=== PATIENT | female | born 1955 | race Caucasian/White ===

== ENCOUNTER 2017-07-20 15:11 | Emergency (ER) | payer MEDICARE, BC ==
[~2017-07-20] VITALS: Ht 162.6 cm; Wt 149.1 kg
[2017-07-20 15:17] VITALS: BP 136/64; PULSE 97; RESP 16; TEMP 99.4; O2SAT 95
[2017-07-20 15:32] LABS: BILIRUBIN, URINE NEG (NEG); BLOOD, URINE LARGE (NEG); GLUCOSE,URINE 100 mg/dL (NEG); KETONE, URINE NEG (NEG); NITRITE,URINE NEG (NEG); URINE LEUKOCYTE ESTERASE LARGE (NEG)
[2017-07-20 15:45] LABS: SQUAMOUS EPITHELIAL CELL URINE 0-5 /hpf (0-5); URINE COLOR YELLOW (YELLW/STRAW); WBC, URINE 100-200 /hpf (0-5); WHITE BLOOD CELL CLUMPS MOD
[2017-07-20 15:46] LABS: BACTERIA, URINE FEW /hpf
[2017-07-20] MEDS ORDERED: RECLAST (17:45)
[2017-07-20] MEDS ORDERED: FURO1TAB60 PO (17:45)
[2017-07-20] MEDS ORDERED: TAMS0.4C4 (17:45)
[2017-07-20] MEDS ORDERED: VICT18IN SQ (17:45)
[2017-07-20] MEDS ORDERED: CARV12.52 PO (17:45)
[2017-07-20] MEDS ORDERED: VITAMIN B12 (17:45)
[2017-07-20] MEDS ORDERED: TRAM50TA PO (17:45)
[2017-07-20] MEDS ORDERED: METF500T PO (17:45)
[2017-07-20] MEDS ORDERED: CYMB60CA PO (17:45)
[2017-07-20] MEDS ORDERED: DICY10 PO (17:45)
[2017-07-20] MEDS ORDERED: VIT D (17:45)
[2017-07-20] MEDS ORDERED: GABA600T PO (17:45)
[2017-07-20] MEDS ORDERED: CHOLCRY (17:45)
[2017-07-20] MEDS ORDERED: GLIP10TA6 PO (17:45)
[2017-07-20] MEDS ORDERED: BIOTCAP PO (17:45)
[2017-07-20] MEDS ORDERED: SODIUM CHLORIDE 0.9% FLUSH 10 ML FLUSH IV FLUSH PRN (18:30)
[2017-07-20] MEDS ORDERED: cefTRIAXone INJ 1,000 MG in SODIUM CHLORIDE 0.9% INJ 100 ML IV ONE (18:30)
[2017-07-20 19:00] VITALS: O2SAT 94
--- NOTE | 2017-07-20 19:12 | RADRPT ---
EXAM DATE/TIME: 07/20/2017 18:38 [place] COMPARISON: No previous studies available for comparison. INDICATIONS : Urinary urgency, frequency, and burning. ORAL CONTRAST: No oral contrast ingested. RADIATION DOSE: 27.78 CTDIvol (mGy) ; High dose protocol; Patient body habitus MEDICAL HISTORY : Crohn's disease. SURGICAL HISTORY : Umbilical hernia repair. Multiple abdominal surgeries, patient unsure. ENCOUNTER: Initial ACUITY: 4 - 6 days PAIN SCALE: 5/10 LOCATION: abdomen TECHNIQUE: Volumetric scanning of the abdomen and pelvis was performed. Using automated exposure control and ad justment of the mA and/or kV according to patient size, radiation dose was kept as low as reasonably achievable to obtain optimal diagnostic quality images. DICOM format image data is available electro nically for review and comparison. The lack of IV contrast limits the diagnosis for certain organ pat hology. FINDINGS: LIVER: Homogeneous density without lesion. There is no dilation of the biliary tree. There appears to be so me tiny calcified gallstones. SPLEEN: Normal size without lesion. PANCREAS: Within normal limits. KIDNEYS: Multiple calcified bilateral renal stones are demonstrated. There is some mild hydronephrosis of the left collecting system. There is a 1.6 cm stone in the lower pole the right kidney. There is a 1 cm s tone in the mid right renal pelvis. There is a 1.2 cm stone in the mid left renal pelvis. There is a 1.1 cm stone in the proximal right ureter. A few tiny stone fragments are seen in the mid to distal r ight ureter. ADRENAL GLANDS: Within normal limits. VASCULAR: There is no aortic aneurysm. BOWEL/MESENTERY: The stomach, small bowel, and colon demonstrate no acute abnormality. There is no free intraperitone al air or fluid. No inflammatory changes. ABDOMINAL WALL: Within normal limits. RETROPERITONEUM: There is no lymphadenopathy. BLADDER: No wall thickening or mass. No definite bladder stones. The urinary bladder is decompressed. REPRODUCTIVE: Within normal limits. INGUINAL: There is no lymphadenopathy or hernia. MUSCULOSKELETAL: Within normal limits for patient age. Diffuse degenerative changes. CONCLUSION: 1. Multiple bilateral calcified renal stones. There is hydronephrosis of the right collecting system. 2. There is several stones seen in the mid and distal ureter right ureter. Lino Sandoval MD on July 20, 2017 at 19:03 Board Certified Radiologist. This report was verified electronically.
[2017-07-20 19:17] LABS: AUTOMATED NEUTROPHIL # 5.3 TH/MM3 (1.8-7.7); BASOPHIL # 0.2 TH/MM3 (0-0.2); EOSINOPHIL % 0.1 % (0.0-4.0); HEMATOCRIT 42.7 % (35.0-46.0); HEMOGLOBIN 14.2 GM/DL (11.6-15.3); LYMPH % 11.1 % (9.0-44.0); LYMPHOCYTE # 0.8 TH/MM3 (1.0-4.8); MEAN CELL VOLUME 91.2 FL (80.0-100.0); MEAN CORPUSCULAR HEMOGLOBIN 30.4 PG (27.0-34.0); MEAN CORPUSCULAR HGB CONC 33.3 % (32.0-36.0); MEAN PLATELET VOLUME 8.1 FL (7.0-11.0); MONO % 10.4 % (0.0-8.0); MONOCYTE # 0.7 TH/MM3 (0-0.9); NEUT % 75.4 % (16.0-70.0); PLATELET COUNT 104 TH/MM3 (150-450); RED BLOOD COUNT 4.68 MIL/MM3 (4.00-5.30); RED CELL DISTRIBUTION WIDTH 13.6 % (11.6-17.2)
[2017-07-20 19:29] LABS: BICARBONATE 26.5 MEQ/L (21.0-32.0); CALCIUM 8.7 MG/DL (8.5-10.1)
[2017-07-20 19:32] LABS: CREATININE 1.2 MG/DL (0.50-1.00)
[2017-07-20] MEDS ORDERED: MACR100C2 PO (19:47)
[2017-07-20] MEDS ORDERED: TAMS5CAP PO (19:47)
--- NOTE | 2017-07-20 19:52 | PD ---
HPI Chief Complaint: Complaint Time Seen by Provider: 18:10 Travel History International Travel<30 days: No Contact w/Intl Traveler<30days: No Traveled to known affect area: No History of Present Illness HPI Patient comes to the emergency department complaining UTI symptoms 5 days. Patient reports dysuria, urinary frequency, and low back pain. Denies any fevers, chest pain, shortness of breath, nausea, vomiting, loss change of bowel , or trauma. Patient reports history of kidney stone was too big to be retrieved states she has passed kidney stones in the past but this does not feel quite the same. Patient states she gets UTIs approximately twice a year. Patient states that the back pain began 2 days ago she started taking a prescription of doxycycline yesterday the back pain has since improved. Patient states she has been taking Tylenol for the pain, but can only take 1 a day secondary to her history of Conti. Patient states that she does not like to take ibuprofen secondary to her Crohn's. PFSH Past Medical History Narrative Medical Crohn's, CONTI Congestive Heart Failure: Yes Diabetes: Yes Diminished Hearing: No Tetanus Vaccination: Unknown ?: Not Social History Alcohol Use: No Tobacco Use: No Substance Use: No Allergies-Medications (Allergen,Severity, Reaction): Coded Allergies: No Known Allergies (Unverified , 07/20/17) Reported Meds & Prescriptions Reported Meds & Active Scripts Active Flomax (Tamsulosin HCl) 0.4 Mg Cap 0.4 Mg PO HS 7 Days Macrobid (Nitrofurantoin Monoh/Nitrofur Macro) 100 Mg Cap 100 Mg PO BID 10 Days Reported [Vit D] [Vitamin B12] Tramadol (Tramadol HCl) 50 Mg Tab 50 Mg PO Q6H PRN [Reclast] Metformin (Metformin HCl) 500 Mg Tab 750 Mg PO BIDPC Victoza Inj (Liraglutide Inj) 18 Mg/3 Ml Pen 1.8 Mg SQ DAILY Lasix (Furosemide) 40 Mg Tab 40 Mg PO BID Glipizide 10 Mg Tab 10 Mg PO DAILY Take 30 minutes before a meal Gabapentin 600 Mg Tab 1,200 Mg PO TID Cymbalta DR (Duloxetine HCl) 60 Mg Capdr 60 Mg PO DAILY [Cholecalciferol] Carvedilol 12.5 Mg Tab 12.5 Mg PO BID Biotin 5 Mg Cap 1 Mg PO DAILY Bentyl (Dicyclomine HCl) 10 Mg Cap 10 Mg PO BID Review of Systems Except as stated in HPI: all other systems reviewed are Neg Physical Exam Narrative GENERAL: Well-developed, overly nourished, in no acute distress, and non-ill appearing. SKIN: Focused skin assessment warm and dry. HEAD: Atraumatic. Normocephalic. EYES: Pupils equal and round. EOMI. No scleral icterus. No injection or drainage. ENT: No nasal bleeding or discharge. Mucous membranes pink and moist. NECK: Trachea midline. Supple. No nuclear rigidity. RESPIRATORY: No accessory muscle use. No respiratory distress. GASTROINTESTINAL: Abdomen soft, non-tender, nondistended, and no guarding. Hepatic and splenic margins not palpable. Normal bowel sounds x4. No pulsatile mass. No CVA tenderness. MUSCULOSKELETAL: No obvious deformities. No clubbing. No cyanosis. No edema. Full range of motion. NEUROLOGICAL: Awake and alert. No obvious cranial nerve deficits. Motor grossly within normal limits. Normal speech. PSYCHIATRIC: Appropriate mood and affect; insight and judgment normal. Data Data Last Documented VS Vital Signs Date Time Temp Pulse Resp B/P (MAP) Pulse Ox O2 Delivery O2 Flow Rate FiO2 07/20/17 20:15 88 16 94/67 (76) 94 07/20/17 19:00 Room Air 07/20/17 15:17 99.4 Orders Orders Urinalysis - C+S If Indicated (07/20/17 15:20) Urine Culture (07/20/17 15:18) Basic Metabolic Panel (Bmp) (07/20/17 18:19) Complete Blood Count With Diff (07/20/17 18:19) Ct Abd/Pel W/O Iv Contrast (07/20/17 18:19) Iv Access Insert/Monitor (07/20/17 18:19) Ecg Monitoring (07/20/17 18:19) Oximetry (07/20/17 18:19) Ceftriaxone Inj (Rocephin Inj) (07/20/17 18:30) Sodium Chloride 0.9% Flush (Ns Flush) (07/20/17 18:30) Ed Discharge Order (07/20/17 19:53) Labs Laboratory Tests Test 07/20/17 15:18 07/20/17 19:04 Urine Color YELLOW Urine Turbidity CLOUDY Urine pH 6.0 Urine Specific [place] 1.006 Urine Protein 30 mg/dL Urine Glucose (UA) 100 mg/dL Urine Ketones NEG mg/dL Urine Occult Blood LARGE Urine Nitrite NEG Urine Bilirubin NEG Urine Leukocyte Esterase LARGE Urine RBC 4-9 /hpf Urine WBC 100-200 /hpf Urine WBC Clumps MOD Urine Squamous Epithelial Cells 0-5 /hpf Urine Bacteria FEW /hpf Microscopic Urinalysis Comment CULTURE INDICATED White Blood Count 7.0 TH/MM3 Red Blood Count 4.68 MIL/MM3 Hemoglobin 14.2 GM/DL Hematocrit 42.7 % Mean Corpuscular Volume 91.2 FL Mean Corpuscular Hemoglobin 30.4 PG Mean Corpuscular Hemoglobin Concent 33.3 % Red Cell Distribution Width 13.6 % Platelet Count 104 TH/MM3 Mean Platelet Volume 8.1 FL Neutrophils (%) (Auto) 75.4 % Lymphocytes (%) (Auto) 11.1 % Monocytes (%) (Auto) 10.4 % Eosinophils (%) (Auto) 0.1 % Basophils (%) (Auto) 3.0 % Neutrophils # (Auto) 5.3 TH/MM3 Lymphocytes # (Auto) 0.8 TH/MM3 Monocytes # (Auto) 0.7 TH/MM3 Eosinophils # (Auto) 0.0 TH/MM3 Basophils # (Auto) 0.2 TH/MM3 CBC Comment DIFF FINAL Differential Comment Blood Urea Nitrogen 12 MG/DL Creatinine 1.20 MG/DL Random Glucose 216 MG/DL Calcium Level 8.7 MG/DL Sodium Level 132 MEQ/L Potassium Level 3.9 MEQ/L Chloride Level 97 MEQ/L Carbon Dioxide Level 26.5 MEQ/L Anion Gap 9 MEQ/L Estimat Glomerular Filtration Rate 45 ML/MIN [facility] Medical Decision Making Medical Screen Exam Complete: Yes Emergency Medical Condition: Yes Interpretation(s) Last Impressions Abdomen/Pelvis CT 07/20/171818 Signed Impressions: Service Date/Time: Thursday, July 20, 2017 18:38 - CONCLUSION: 1. Multiple bilateral calcified renal stones. There is hydronephrosis of the right collecting system. 2. There is several stones seen in the mid and distal ureter right ureter. Lino Sandoval MD Differential Diagnosis UTI, renal calculi, hydronephrosis, ureteral calculus, metabolic disturbance Narrative Course The patient presented with history, exam and evaluation consistent with kidney stone. CT scan showed evidence of stone without obstruction , hydronephrosis or hydroureter. There was evidence of UTI. The patients pain was well controlled and the patient is tolerating fluids. There was no clinical evidence to support appendicitis, bowel obstruction, cholecystitis/cholelithiasis, pancreatitis, perforation of gastric ulcer, colitis, diverticulitis, bacterial peritonitis, obstruction, volvulus, hernial incarceration or strangulation at this time. There was no evidence to support vascular pathology such as AAA, mesenteric ischemia. There was also no clinical evidence by history, exam or risk factors to suggest atypical presentation of cardiac disease such as ACS, AMI or atypical angina. Diagnosis, plan of care, management and acute outpatient follow up with Urology was discussed with the patient. Warnings to return immediately, such as worsening pain not controlled by pain medications, vomiting , fever or chills or worsening of condition were discussed. The patient agreed with plan. Patient in no obvious distress upon re-evaluation. All pertinent laboratory/ Radiology result(s) discussed with patient. Patient was asked if they wanted to speak to my attending, which the patient did not wish to do at this time. Any questions/concerns in reference to patient diagnosis/condition discussed and clarified prior to patient's discharge. Reinforced sheer importance of close follow up with patient's primary physician or primary care clinic and urology. Instructed patient to return to ED immediately, if symptoms return/worsen. Patient showed understanding of above instructions. Further instructions and recommendations were detailed in discharge paperwork. Patient ambulated without difficulty out of ED at discharge. Diagnosis Primary Impression: Ureteral calculus, right Additional Impression: UTI (urinary tract infection) Qualified Codes: N39.0 - Urinary tract infection, site not specified; R31.9 - Hematuria, unspecified Referrals: Luis Daniel Dee MD Patient Instructions: General Instructions, Kidney Stones (ED), Urinary Tract Infection in Women (ED) Additional Instructions: Follow-up with your primary care physician and/or urologist in 3-5 days for reevaluation. Take all medication as prescribed. Return to the emergency department if symptoms get worse. Med/Other Pt SpecificInfo: Prescription(s) given Scripts Tamsulosin (Flomax) 0.4 Mg Cap 0.4 MG PO HS for Manage Prostate Problems for 7 Days, #7 CAP 0 Refills Prov: Moris Mcfarland MD 07/20/17 Nitrofurantoin Monohydrate Macrocrystals (Macrobid) 100 Mg Cap 100 MG PO BID for Infection for 10 Days, #20 CAP 0 Refills Prov: Moris Mcfarland MD 07/20/17 Disposition: 01 DISCHARGE HOME Condition: Stable Reese León Jul 20, 2017 19:52
[2017-07-20 20:15] VITALS: BP 94/67
== END 2017-07-20 20:22 | disposition home or self-care (01) ==
LOC: PHED 15:11 → PHEFT 20:22
DX: N13.2 Hydronephrosis with renal and ureteral calculous obstruction (principal); N39.0 Urinary tract infection, site not specified; B96.20 Unspecified Escherichia coli [E. coli] as the cause of diseases classified elsewhere; I50.9 Heart failure, unspecified; E11.9 Type 2 diabetes mellitus without complications; K50.90 Crohn's disease, unspecified, without complications; K75.81 Nonalcoholic steatohepatitis (NASH); Z87.442 Personal history of urinary calculi; Z87.440 Personal history of urinary (tract) infections; Z79.899 Other long term (current) drug therapy; Z79.84 Long term (current) use of oral hypoglycemic drugs
CPT/HCPCS: 74176; 80048; 81001; 85025; 87077; 87086; 87186; 96365; 99284; J0696